=== PATIENT | male | born 1940 | race Caucasian/White ===

== ENCOUNTER → 2016-06-13 | Outpatient (CLI) | payer MEDICARE ==
[~2016-06-13] MED LIST: ACET65TA; AMOX875T; BABY81CH; COLA100C2; CORE25TA PO; COUM10TA; COUM1TAB17 PO; COUM7.5T PO; COZA50TA PO; DARV100T; LASI20TA PO; PLAV75TA2; PLAV75TA38 PO
[2016-06-13 12:40] LABS: MEAN CORPUSCULAR HEMOGLOBIN 28.8 pg (27.0-33.0); MEAN CORPUSCULAR HGB CONC 31.9 g/dl (32.0-36.5); MEAN CORPUSCULAR VOLUME 90.4 fl (80.0-96.0); RED CELL DISTRIBUTION WIDTH 13.2 % (11.5-14.5); WHITE BLOOD COUNT 6.7 K/mm3 (4.0-10.0)
[2016-06-13 12:49] LABS: ALBUMIN 3.6 GM/DL (3.2-5.2); ALKALINE PHOSPHATASE 104 U/L (45-117); ALT/SGPT 24 U/L (12-78); ANION GAP 8 MEQ/L (8-16); AST/SGOT 23 U/L (15-37); BILIRUBIN,TOTAL 0.8 MG/DL (0.2-1.0); BLOOD UREA NITROGEN 23 MG/DL (7-18); CALCIUM LEVEL 8.8 MG/DL (8.8-10.2); CARBON DIOXIDE LEVEL 30 MEQ/L (21-32); CHLORIDE LEVEL 104 MEQ/L (98-107); CHOLESTEROL LEVEL 199 MG/DL (<200); CREATININE FOR GFR 1.21 MG/DL (0.70-1.30); GLOMERULAR FILTRATION RATE > 60.0 (>42); GLUCOSE, FASTING 127 MG/DL (83-110); POTASSIUM SERUM 5.2 MEQ/L (3.5-5.1); SODIUM LEVEL 142 MEQ/L (136-145); TOTAL PROTEIN 7.2 GM/DL (6.4-8.2); TRIGLYCERIDES LEVEL 106 MG/DL (<150)
== END ==
LOC: M WUC 10:06
PROVIDERS: ATTEND Internal Medicine
DX: K57.90 Diverticulosis of intestine, part unspecified, without perforation or abscess without bleeding (principal); I10 Essential (primary) hypertension; R73.01 Impaired fasting glucose; I25.10 Atherosclerotic heart disease of native coronary artery without angina pectoris; E55.9 Vitamin D deficiency, unspecified

== ENCOUNTER → 2016-12-24 | Outpatient (REF) | payer MEDICARE ==
[~2016-12-24] MED LIST changes: +PLAV1TAB2 PO; -PLAV75TA38 PO
== END ==
LOC: M SFHCPLAZ 10:46
PROVIDERS: ATTEND Internal Medicine
DX: R73.01 Impaired fasting glucose (principal); I25.10 Atherosclerotic heart disease of native coronary artery without angina pectoris
CPT/HCPCS: 36415; 80061; 83036; 90714; G0463

== ENCOUNTER → 2017-07-09 | Outpatient (CLI) | payer MEDICARE ==
[2017-07-09 16:51] LABS: INR 1.93; PROTHROMBIN TIME 22.7 SECONDS (12.4-14.5)
[2017-07-09 17:02] LABS: ALBUMIN 4.2 GM/DL (3.2-5.2); ALBUMIN/GLOBULIN RATIO 1.14 (1.00-1.93); ALKALINE PHOSPHATASE 119 U/L (45-117); ALT/SGPT 20 U/L (12-78); ANION GAP 4 MEQ/L (8-16); AST/SGOT 23 U/L (7-37); BILIRUBIN,TOTAL 1.1 MG/DL (0.2-1.0); BLOOD UREA NITROGEN 29 MG/DL (7-18); CALCIUM LEVEL 9.1 MG/DL (8.8-10.2); CARBON DIOXIDE LEVEL 29 MEQ/L (21-32); CHLORIDE LEVEL 109 MEQ/L (98-107); CHOLESTEROL LEVEL 204 MG/DL (<200); CHOLESTEROL RISK RATIO 4.434 (<5); CREATININE FOR GFR 1.26 MG/DL (0.70-1.30); GLOMERULAR FILTRATION RATE 59.1 (>42); GLUCOSE, FASTING 100 MG/DL (70-100); HDL CHOLESTEROL 46 MG/DL (>40); LDL CHOLESTEROL 138.8 MG/DL (<100); MAGNESIUM LEVEL 2.2 MG/DL (1.8-2.4); NON-HDL-C 158 MG/DL; SODIUM LEVEL 142 MEQ/L (136-145); TOTAL PROTEIN 7.9 GM/DL (6.4-8.2); TRIGLYCERIDES LEVEL 96 MG/DL (<150)
[2017-07-09 17:03] LABS: POTASSIUM SERUM 5.3 MEQ/L (3.5-5.1)
[2017-07-09 17:04] LABS: TOTAL 25(OH) VITAMIN D 46.3 NG/ML (30.0-100.0)
[2017-07-09 17:10] LABS: MALB URINE SIEMENS 71.4 MG/L
[2017-07-09 19:29] LABS: ESTIMATED AVERAGE GLUCOSE 143 MG/DL (60-110); HEMOGLOBIN A1c 6.6 %
== END ==
LOC: M WUC 11:59
DX: I10 Essential (primary) hypertension (principal); R73.01 Impaired fasting glucose; I25.10 Atherosclerotic heart disease of native coronary artery without angina pectoris; I48.2 Chronic atrial fibrillation; Z51.81 Encounter for therapeutic drug level monitoring; Z79.01 Long term (current) use of anticoagulants; E55.9 Vitamin D deficiency, unspecified
CPT/HCPCS: 83735

== ENCOUNTER → 2018-01-14 | Outpatient (REF) | payer MEDICARE ==
[2018-01-14 13:43] LABS: HEMATOCRIT 41.6 % (42.0-52.0); HEMOGLOBIN 13.3 g/dl (13.5-17.5); MEAN CORPUSCULAR HEMOGLOBIN 28.2 pg (27.0-33.0); MEAN CORPUSCULAR VOLUME 88.3 fl (80.0-96.0); PLATELET COUNT, AUTOMATED 132 10^3/uL (150-450); RED BLOOD COUNT 4.71 10^6/uL (4.30-6.10); WHITE BLOOD COUNT 5.5 10^3/uL (4.0-10.0)
[2018-01-14 14:04] LABS: ESTIMATED AVERAGE GLUCOSE 137 MG/DL (60-110); HEMOGLOBIN A1c 6.4 %
[2018-01-14 14:06] LABS: ALBUMIN 3.8 GM/DL (3.2-5.2); ALBUMIN/GLOBULIN RATIO 1.15 (1.00-1.93); ALKALINE PHOSPHATASE 107 U/L (45-117); ALT/SGPT 22 U/L (12-78); ANION GAP 5 MEQ/L (8-16); AST/SGOT 21 U/L (7-37); BLOOD UREA NITROGEN 27 MG/DL (7-18); CALCIUM LEVEL 8.4 MG/DL (8.8-10.2); CARBON DIOXIDE LEVEL 31 MEQ/L (21-32); CHLORIDE LEVEL 107 MEQ/L (98-107); CHOLESTEROL LEVEL 192 MG/DL (<200); CREATININE FOR GFR 1.31 MG/DL (0.70-1.30); GLOMERULAR FILTRATION RATE 56.5 (>42); GLUCOSE, FASTING 115 MG/DL (70-100); HDL CHOLESTEROL 48 MG/DL (>40); LDL CHOLESTEROL 126 MG/DL (<100); MAGNESIUM LEVEL 2.1 MG/DL (1.8-2.4); NON-HDL-C 144 MG/DL; POTASSIUM SERUM 4.8 MEQ/L (3.5-5.1); SODIUM LEVEL 143 MEQ/L (136-145); TOTAL PROTEIN 7.1 GM/DL (6.4-8.2); TRIGLYCERIDES LEVEL 88 MG/DL (<150)
[2018-01-14 14:11] LABS: MALB URINE SIEMENS 63.2 MG/L
== END ==
LOC: M SFHCPLAZ 10:50
DX: R73.01 Impaired fasting glucose (principal); I25.10 Atherosclerotic heart disease of native coronary artery without angina pectoris; E55.9 Vitamin D deficiency, unspecified; R19.5 Other fecal abnormalities; I10 Essential (primary) hypertension; Z51.81 Encounter for therapeutic drug level monitoring; Z79.01 Long term (current) use of anticoagulants; Z68.30 Body mass index [BMI] 30.0-30.9, adult
CPT/HCPCS: 83735

== ENCOUNTER 2018-02-25 11:56 | Day surgery (SDC) | payer MEDICARE ==
[2018-02-25] MEDS: NS 1,000 ML IV (07:00)
[~2018-02-25 11:56] MED LIST changes: -ACET65TA; -AMOX875T; -BABY81CH; -COLA100C2; -CORE25TA PO; -COUM10TA; -COUM1TAB17 PO; -COUM7.5T PO; -COZA50TA PO; -DARV100T; -LASI20TA PO; -PLAV1TAB2 PO; -PLAV75TA2; +PROPOFOL 200 MG/20 ML VIAL As Ordered
== END 2018-02-25 13:40 | disposition home or self-care (01) ==
LOC: M OPP 13:40
DX: Z12.11 Encounter for screening for malignant neoplasm of colon (principal); K64.0 First degree hemorrhoids; K57.30 Diverticulosis of large intestine without perforation or abscess without bleeding; I48.91 Unspecified atrial fibrillation; I25.9 Chronic ischemic heart disease, unspecified; G47.30 Sleep apnea, unspecified; Z79.01 Long term (current) use of anticoagulants; Z79.899 Other long term (current) drug therapy; Z95.810 Presence of automatic (implantable) cardiac defibrillator
CPT/HCPCS: G0121

== ENCOUNTER → 2018-07-28 | Outpatient (CLI) | payer MEDICARE ==
[~2018-07-28] MED LIST changes: +ACET65TA; +AMOX875T; +BABY81CH; +COLA100C2; +CORE25TA PO; +COUM10TA; +COUM1TAB17 PO; +COUM7.5T PO; +COZA50TA PO; +DARV100T; +LASI20TA3 PO; +PLAV1TAB2 PO; +PLAV75TA2; -PROPOFOL 200 MG/20 ML VIAL As Ordered
[2018-07-28 12:59] LABS: HEMOGLOBIN 12.1 g/dl (13.5-17.5); MEAN CORPUSCULAR HEMOGLOBIN 28.9 pg (27.0-33.0); MEAN CORPUSCULAR HGB CONC 31.8 g/dl (32.0-36.5); MEAN CORPUSCULAR VOLUME 90.7 fl (80.0-96.0); PLATELET COUNT, AUTOMATED 156 10^3/uL (150-450); RED BLOOD COUNT 4.19 10^6/uL (4.30-6.10); WHITE BLOOD COUNT 5.7 10^3/uL (4.0-10.0)
[2018-07-28 13:31] LABS: ALBUMIN 3.4 GM/DL (3.2-5.2); BILIRUBIN,TOTAL 1.5 MG/DL (0.2-1.0); CALCIUM LEVEL 8.8 MG/DL (8.8-10.2); CHOLESTEROL RISK RATIO 4.219 (<5); CREATININE FOR GFR 1.25 MG/DL (0.70-1.30); GLOMERULAR FILTRATION RATE 59.5 (>42); POTASSIUM SERUM 4.6 MEQ/L (3.5-5.1); TOTAL PROTEIN 7.1 GM/DL (6.4-8.2)
[2018-07-28 14:19] LABS: HEMOGLOBIN A1c 6.5 %
[2018-07-29 10:51] LABS: URIC ACID 4.2 MG/DL (3.5-7.2)
== END ==
LOC: M WUC 08:53
PROVIDERS: ATTEND Internal Medicine
DX: R19.5 Other fecal abnormalities (principal); I10 Essential (primary) hypertension; R73.01 Impaired fasting glucose; I25.10 Atherosclerotic heart disease of native coronary artery without angina pectoris; E55.9 Vitamin D deficiency, unspecified

== ENCOUNTER → 2019-02-05 | Outpatient (REF) | payer MEDICARE ==
[2019-02-05 12:45] LABS: HEMATOCRIT 43.2 % (42.0-52.0); HEMOGLOBIN 13.5 g/dl (13.5-17.5); MEAN CORPUSCULAR HEMOGLOBIN 28.1 pg (27.0-33.0); MEAN CORPUSCULAR HGB CONC 31.3 g/dl (32.0-36.5); MEAN CORPUSCULAR VOLUME 89.8 fl (80.0-96.0); PLATELET COUNT, AUTOMATED 132 10^3/uL (150-450); RED BLOOD COUNT 4.81 10^6/uL (4.30-6.10); WHITE BLOOD COUNT 5.5 10^3/uL (4.0-10.0)
[2019-02-05 12:49] LABS: ALBUMIN 3.8 GM/DL (3.2-5.2); ALT/SGPT 20 U/L (12-78); BLOOD UREA NITROGEN 30 MG/DL (7-18); CALCIUM LEVEL 9.1 MG/DL (8.8-10.2); CARBON DIOXIDE LEVEL 27 MEQ/L (21-32); CHLORIDE LEVEL 109 MEQ/L (98-107); CHOLESTEROL LEVEL 190 MG/DL (<200); CHOLESTEROL RISK RATIO 3.958 (<5); CREATININE FOR GFR 1.23 MG/DL (0.70-1.30); GLOMERULAR FILTRATION RATE > 60.0 (>42); GLUCOSE, FASTING 114 MG/DL (70-100); HDL CHOLESTEROL 48 MG/DL (>40); LDL CHOLESTEROL 125 MG/DL (<100); MAGNESIUM LEVEL 1.9 MG/DL (1.8-2.4); NON-HDL-C 142 MG/DL; SODIUM LEVEL 140 MEQ/L (136-145); TOTAL PROTEIN 7.3 GM/DL (6.4-8.2); TRIGLYCERIDES LEVEL 84 MG/DL (<150); URIC ACID 8.9 MG/DL (3.5-7.2)
[2019-02-05 13:19] LABS: MALB URINE SIEMENS 91.8 MG/L
[2019-02-05 14:12] LABS: HEMOGLOBIN A1c 6.6 %
== END ==
LOC: M SFHCPLAZ 09:03
PROVIDERS: ATTEND Internal Medicine
DX: I10 Essential (primary) hypertension (principal); R73.01 Impaired fasting glucose; I25.10 Atherosclerotic heart disease of native coronary artery without angina pectoris; M79.672 Pain in left foot; Z79.01 Long term (current) use of anticoagulants
CPT/HCPCS: 36415; 80053; 80061; 82043; 83036; 83735; 84550; 85027; G0463

== ENCOUNTER → 2019-06-11 | Outpatient (CLI) | payer MEDICARE ==
--- NOTE | 2019-06-11 09:13 | REP ---
Renal Vascular Doppler Ultrasound: Right Kidney: Renal length new 0.0 cm. Extraparenchymal renal artery. Peak renal artery flow velocity the 223 cm/ sec Peak aortic velocity: 84 cm/sec Renal/aortic ratio: 2.7 Intraparenchymal renal arteries. Resistive index: upper pole 0.88 mid pole 0.88 lower pole 0.84 Acceleration time: upper pole 0.052 mid pole 0.060 lower pole 0.052 Left kidney: Renal length 11.6 cm. Extraparenchymal renal artery: Peak renal artery flow velocity: 192 cm/sec. Peak aortic velocity: 84 cm/sec Renal/aortic ratio: 2.3 Intraparenchymal renal arteries: Resistive index: Upper pole 0.89 mid pole 0.8 sac lower pole 0.87 Acceleration time: Upper pole 0.058 mid pole 0.050 lower pole 0.058 Impression: The peak renal artery velocities are elevated and the renal/aortic ratios are mildly elevated. This suggests narrowing of the renal arteries bilaterally. CTA or MRA might be considered for further evaluation. The resistive indices within the intra renal parenchymal arteries are elevated bilaterally. This is nonspecific but could be related to chronic renal parenchymal disease. Bilateral renal ultrasound: The right kidney measures 11.0 x 6.3 x 5.2 cm. The left kidney measures 11.6 x 5.7 x 5.6 cm. The kidneys are normal size. Renal cortical echogenicity is normal bilaterally. There are no renal calculi. There is no hydronephrosis. There are no solid or cystic renal masses. Impression: Essentially negative bilateral renal ultrasound. Electronically Signed by Gabe Zamora MD 06/11/2019 09:05 A
== END ==
LOC: M RAD 07:17
PROVIDERS: ATTEND Physician Assistant
DX: I10 Essential (primary) hypertension (principal)

== ENCOUNTER → 2019-08-13 | Outpatient (CLI) | payer MEDICARE ==
[2019-08-13 10:19] LABS: HEMATOCRIT 39.8 % (42.0-52.0); HEMOGLOBIN 12.4 g/dl (13.5-17.5); MEAN CORPUSCULAR HEMOGLOBIN 28.2 pg (27.0-33.0); MEAN CORPUSCULAR HGB CONC 31.2 g/dl (32.0-36.5); MEAN CORPUSCULAR VOLUME 90.5 fl (80.0-96.0); PLATELET COUNT, AUTOMATED 133 10^3/uL (150-450); WHITE BLOOD COUNT 6.7 10^3/uL (4.0-10.0)
[2019-08-13 10:38] LABS: HEMOGLOBIN A1c 7.1 %
[2019-08-13 10:46] LABS: ALBUMIN 3.7 GM/DL (3.2-5.2); CALCIUM LEVEL 8.4 MG/DL (8.8-10.2); CHOLESTEROL RISK RATIO 3.095 (<5); CREATININE FOR GFR 1.72 MG/DL (0.70-1.30); MAGNESIUM LEVEL 2.1 MG/DL (1.8-2.4); POTASSIUM SERUM 4.9 MEQ/L (3.5-5.1); THYROID STIMULATING HORMONE 1.88 uIU/ML (0.358-3.740); TOTAL PROTEIN 7.2 GM/DL (6.4-8.2); URIC ACID 8.7 MG/DL (3.5-7.2)
[2019-08-13 10:50] LABS: TOTAL 25(OH) VITAMIN D 73.2 NG/ML (30.0-100.0)
== END ==
LOC: M WUC 08:48
PROVIDERS: ATTEND Internal Medicine
DX: I10 Essential (primary) hypertension (principal); R73.01 Impaired fasting glucose; E55.9 Vitamin D deficiency, unspecified; Z79.01 Long term (current) use of anticoagulants; I48.20 Chronic atrial fibrillation, unspecified; I25.10 Atherosclerotic heart disease of native coronary artery without angina pectoris; E79.0 Hyperuricemia without signs of inflammatory arthritis and tophaceous disease; Z79.899 Other long term (current) drug therapy

== ENCOUNTER → 2019-11-24 | Outpatient (CLI) | payer MEDICARE ==
[~2019-11-24] MED LIST changes: -COUM7.5T PO; +COUM7.5T6 PO
--- NOTE | 2019-12-01 14:47 | REP ---
RENAL ULTRASOUND CLINICAL: Worsening renal insufficiency. TECHNIQUE: Real-time dunn scale ultrasound examination using curved array transducer. FINDINGS: The bilateral kidneys demonstrate increased central medullary fat and decreased cortical parenchyma consistent with chronic renal disease. No hydronephrosis, nephrolithiasis, cystic or mass lesion is appreciated. The right kidney measures 10.3 x 5.3 x 4.8 cm and demonstrates normal reniform shape. The left kidney measures 11.2 x 6.4 x 5.9 cm and demonstrates subtle areas of cortical scarring. The bladder is under-distended, but grossly normal in appearance. IMPRESSION: Evidence consistent with chronic medical renal disease and minimal cortical scarring along the left kidney. No hydronephrosis. MTDD
== END ==
LOC: M RAD 10:18
PROVIDERS: ATTEND Internal Medicine Cardiovascular Disease
DX: N18.3 Chronic kidney disease, stage 3 (moderate) (principal)

== ENCOUNTER → 2020-02-10 | Outpatient (CLI) | payer MEDICARE ==
[2020-02-10 13:16] LABS: HEMOGLOBIN A1c 6.4 %
[2020-02-10 13:40] LABS: CREATININE, URINE 57.7 MG/DL; MALB URINE SIEMENS 28.7 MG/L; MAU/CREAT RATIO 49.7 MCG/MG (0.0-30.0)
[2020-02-10 14:03] LABS: ALBUMIN 3.7 GM/DL (3.2-5.2); BILIRUBIN,TOTAL 0.9 MG/DL (0.2-1.0); CALCIUM LEVEL 9.1 MG/DL (8.8-10.2); CREATININE FOR GFR 1.64 MG/DL (0.70-1.30); GLOMERULAR FILTRATION RATE 43.4 (>42); MAGNESIUM LEVEL 2.2 MG/DL (1.8-2.4); POTASSIUM SERUM 5.2 MEQ/L (3.5-5.1); TOTAL PROTEIN 7.2 GM/DL (6.4-8.2); URIC ACID 8.4 MG/DL (3.5-7.2)
== END ==
LOC: M WUC 09:33
PROVIDERS: ATTEND Internal Medicine
DX: I10 Essential (primary) hypertension (principal); R73.01 Impaired fasting glucose

== ENCOUNTER → 2020-08-14 | Outpatient (CLI) | payer MEDICARE ==
[2020-08-14 12:27] LABS: BASO % 0.4 % (0.0-1.0); EOS # 0.2 10^3/uL (0.0-0.5); EOS % 3.9 % (0.0-3.0); HEMATOCRIT 37.6 % (42.0-52.0); HEMOGLOBIN 11.6 g/dl (13.5-17.5); LYMPH # 0.7 10^3/uL (1.5-5.0); MEAN CORPUSCULAR HEMOGLOBIN 28.4 pg (27.0-33.0); MEAN CORPUSCULAR HGB CONC 30.9 g/dl (32.0-36.5); MEAN CORPUSCULAR VOLUME 92.2 fl (80.0-96.0); MONO # 0.6 10^3/uL (0.0-0.8); NEUTROPHILS # 3.2 10^3/uL (1.5-8.5); NEUTROPHILS % 68.5 % (36.0-66.0); PLATELET COUNT, AUTOMATED 122 10^3/uL (150-450); RED BLOOD COUNT 4.08 10^6/uL (4.30-6.10); WHITE BLOOD COUNT 4.6 10^3/uL (4.0-10.0)
[2020-08-14 13:06] LABS: ALBUMIN 3.5 GM/DL (3.2-5.2); BILIRUBIN,TOTAL 0.6 MG/DL (0.2-1.0); CALCIUM LEVEL 8.4 MG/DL (8.8-10.2); CHOLESTEROL RISK RATIO 3.571 (<5); CREATININE FOR GFR 2.23 MG/DL (0.70-1.30); GLOMERULAR FILTRATION RATE 30.3 (>35); MAGNESIUM LEVEL 1.9 MG/DL (1.8-2.4); POTASSIUM SERUM 5.6 MEQ/L (3.5-5.1); PTH INTACT 155.1 PG/ML (18.5-88.0); TOTAL 25(OH) VITAMIN D 83.9 NG/ML (30.0-100.0); TOTAL PROTEIN 7.2 GM/DL (6.4-8.2)
[2020-08-14 13:42] LABS: HEMOGLOBIN A1c 6.4 %
== END ==
LOC: M WUC 10:43
PROVIDERS: ATTEND Internal Medicine
DX: I10 Essential (primary) hypertension (principal); E55.9 Vitamin D deficiency, unspecified; F39 Unspecified mood [affective] disorder; I25.10 Atherosclerotic heart disease of native coronary artery without angina pectoris; Z79.899 Other long term (current) drug therapy

== ENCOUNTER → 2020-09-04 | Outpatient (CLI) | payer MEDICARE ==
[2020-09-04 17:35] LABS: BASO % 0.4 % (0.0-1.0); EOS # 0.2 10^3/uL (0.0-0.5); HEMATOCRIT 37.8 % (42.0-52.0); HEMOGLOBIN 11.5 g/dl (13.5-17.5); LYMPH # 0.7 10^3/uL (1.5-5.0); LYMPH % 15.6 % (24.0-44.0); MEAN CORPUSCULAR HEMOGLOBIN 28.4 pg (27.0-33.0); MEAN CORPUSCULAR HGB CONC 30.4 g/dl (32.0-36.5); MEAN CORPUSCULAR VOLUME 93.3 fl (80.0-96.0); MONO # 0.5 10^3/uL (0.0-0.8); MONO % 11.7 % (2.0-8.0); NEUTROPHILS # 3.1 10^3/uL (1.5-8.5); NEUTROPHILS % 67.1 % (36.0-66.0); PLATELET COUNT, AUTOMATED 114 10^3/uL (150-450); RED BLOOD COUNT 4.05 10^6/uL (4.30-6.10); WHITE BLOOD COUNT 4.6 10^3/uL (4.0-10.0)
[2020-09-04 18:15] LABS: CALCIUM LEVEL 8.9 MG/DL (8.8-10.2); CREATININE FOR GFR 2.07 MG/DL (0.70-1.30); GLOMERULAR FILTRATION RATE 33.1 (>35); POTASSIUM SERUM 4.9 MEQ/L (3.5-5.1); PTH INTACT 98.4 PG/ML (18.5-88.0)
== END ==
LOC: M WUC 10:47
PROVIDERS: ATTEND Internal Medicine
DX: N18.32 Chronic kidney disease, stage 3b (principal); I12.9 Hypertensive chronic kidney disease with stage 1 through stage 4 chronic kidney disease, or unspecified chronic kidney disease; D63.1 Anemia in chronic kidney disease

== ENCOUNTER → 2020-12-20 | Outpatient (CLI) | payer MEDICARE ==
[2020-12-20 16:38] LABS: BASO % 0.4 % (0.0-1.0); EOS # 0.3 10^3/uL (0.0-0.5); EOS % 5.7 % (0.0-3.0); HEMATOCRIT 37.9 % (42.0-52.0); HEMOGLOBIN 11.7 g/dl (13.5-17.5); LYMPH # 0.8 10^3/uL (1.5-5.0); LYMPH % 16.6 % (24.0-44.0); MEAN CORPUSCULAR HEMOGLOBIN 29.2 pg (27.0-33.0); MEAN CORPUSCULAR HGB CONC 30.9 g/dl (32.0-36.5); MEAN CORPUSCULAR VOLUME 94.5 fl (80.0-96.0); MONO # 0.5 10^3/uL (0.0-0.8); MONO % 10.5 % (2.0-8.0); NEUTROPHILS # 3.4 10^3/uL (1.5-8.5); NEUTROPHILS % 66.6 % (36.0-66.0); PLATELET COUNT, AUTOMATED 118 10^3/uL (150-450); RED BLOOD COUNT 4.01 10^6/uL (4.30-6.10); WHITE BLOOD COUNT 5.1 10^3/uL (4.0-10.0)
[2020-12-20 17:11] LABS: ALBUMIN 3.4 GM/DL (3.2-5.2); BILIRUBIN,TOTAL 0.7 MG/DL (0.2-1.0); CALCIUM LEVEL 8.5 MG/DL (8.8-10.2); CHOLESTEROL RISK RATIO 3.52 (<5); CREATININE FOR GFR 2.25 MG/DL (0.70-1.30); MAGNESIUM LEVEL 2.1 MG/DL (1.8-2.4); POTASSIUM SERUM 5.6 MEQ/L (3.5-5.1); TOTAL PROTEIN 6.9 GM/DL (6.4-8.2)
[2020-12-20 17:14] LABS: PTH INTACT 137.4 PG/ML (18.5-88.0)
[2020-12-20 17:15] LABS: MALB URINE SIEMENS 34.9 MG/L; MAU/CREAT RATIO 41.5 MCG/MG (0.0-30.0)
== END ==
LOC: M WUC 11:06
PROVIDERS: ATTEND Internal Medicine
DX: I12.9 Hypertensive chronic kidney disease with stage 1 through stage 4 chronic kidney disease, or unspecified chronic kidney disease (principal); N18.32 Chronic kidney disease, stage 3b; E11.29 Type 2 diabetes mellitus with other diabetic kidney complication; D63.1 Anemia in chronic kidney disease; I25.10 Atherosclerotic heart disease of native coronary artery without angina pectoris; Z11.59 Encounter for screening for other viral diseases
CPT/HCPCS: 36415; 80053; 80061; 82043; 83036; 83735; 83970; 85025; G0472

== ENCOUNTER → 2021-02-12 | Outpatient (CLI) | payer MEDICARE ==
[2021-02-12 17:30] LABS: CREATININE FOR GFR 2.34 MG/DL (0.70-1.30); GLOMERULAR FILTRATION RATE 28.7 (>35); POTASSIUM SERUM 5.2 MEQ/L (3.5-5.1); THYROID STIMULATING HORMONE 1.23 uIU/ML (0.358-3.740)
== END ==
LOC: M WUC 11:40
PROVIDERS: ATTEND Internal Medicine Cardiovascular Disease
DX: I25.5 Ischemic cardiomyopathy (principal); I48.20 Chronic atrial fibrillation, unspecified; E03.9 Hypothyroidism, unspecified

== ENCOUNTER → 2022-02-11 | Outpatient (CLI) | payer MEDICARE ==
[~2022-02-11] MED LIST changes: +CLOP75TA99 PO; -PLAV1TAB2 PO
== END ==
LOC: M PLAIMG 12:38
PROVIDERS: ATTEND Nurse Practitioner Adult Health
DX: R05.9 Cough, unspecified (principal); J84.9 Interstitial pulmonary disease, unspecified

== ENCOUNTER → 2022-02-14 | Outpatient (CLI) | payer MEDICARE ==
[2022-02-14 14:39] LABS: BASO % 0.4 % (0.0-1.0); EOS # 0.1 10^3/uL (0.0-0.5); EOS % 1.2 % (0.0-3.0); LYMPH # 0.9 10^3/uL (1.5-5.0); LYMPH % 10.4 % (24.0-44.0); MEAN CORPUSCULAR HEMOGLOBIN 27.6 pg (27.0-33.0); MEAN CORPUSCULAR HGB CONC 30.8 g/dl (32.0-36.5); MEAN CORPUSCULAR VOLUME 89.7 fl (80.0-96.0); MONO # 0.9 10^3/uL (0.0-0.8); MONO % 10.6 % (2.0-8.0); NEUTROPHILS # 6.4 10^3/uL (1.5-8.5); PLATELET COUNT, AUTOMATED 180 10^3/uL (150-450); RED BLOOD COUNT 4.35 10^6/uL (4.30-6.10); WHITE BLOOD COUNT 8.3 10^3/uL (4.0-10.0)
[2022-02-14 15:17] LABS: BILIRUBIN,TOTAL 0.8 MG/DL (0.3-1.2); C REACTIVE PROTEIN QUANTITATIV 7.6 MG/DL (<1.0); CALCIUM LEVEL 8.9 MG/DL (8.3-10.6); CREATININE FOR GFR 1.7 MG/DL (0.70-1.30); GLOMERULAR FILTRATION RATE 41.4 (>35); TOTAL PROTEIN 7.2 G/DL (5.7-8.2)
[2022-02-14 15:50] LABS: ERYTHROCYTE SEDIMENTATION RATE 54 mm/hr (0-20)
== END ==
LOC: M PLALAB 12:31
PROVIDERS: ATTEND Physician Assistant
DX: R06.02 Shortness of breath (principal); R53.83 Other fatigue; R05.1 Acute cough

== ENCOUNTER → 2022-02-15 | Outpatient (CLI) | payer MEDICARE ==
[~2022-02-15] MED LIST changes: +ISOVUE-370 76% 100ML VIAL As Ordered ONE
== END ==
LOC: M RAD 11:14
PROVIDERS: ATTEND Physician Assistant
DX: R06.02 Shortness of breath (principal); R53.83 Other fatigue; R79.89 Other specified abnormal findings of blood chemistry
CPT/HCPCS: 71275; Q9967

== ENCOUNTER → 2022-02-27 | Outpatient (CLI) | payer MEDICARE ==
[~2022-02-27] MED LIST changes: -ISOVUE-370 76% 100ML VIAL As Ordered ONE
[2022-02-27 13:56] LABS: BASO % 0.4 % (0.0-1.0); EOS # 0.3 10^3/uL (0.0-0.5); EOS % 3.3 % (0.0-3.0); HEMATOCRIT 39.8 % (42.0-52.0); HEMOGLOBIN 12.3 g/dl (13.5-17.5); LYMPH # 1.3 10^3/uL (1.5-5.0); LYMPH % 16.9 % (24.0-44.0); MEAN CORPUSCULAR HEMOGLOBIN 27.9 pg (27.0-33.0); MEAN CORPUSCULAR HGB CONC 30.9 g/dl (32.0-36.5); MEAN CORPUSCULAR VOLUME 90.2 fl (80.0-96.0); MONO # 0.8 10^3/uL (0.0-0.8); MONO % 10.2 % (2.0-8.0); NEUTROPHILS # 5.2 10^3/uL (1.5-8.5); NEUTROPHILS % 68.8 % (36.0-66.0); PLATELET COUNT, AUTOMATED 174 10^3/uL (150-450); RED BLOOD COUNT 4.41 10^6/uL (4.30-6.10); WHITE BLOOD COUNT 7.5 10^3/uL (4.0-10.0)
[2022-02-27 14:07] LABS: HEMOGLOBIN A1c 6.1 % (4.0-6.0)
[2022-02-27 14:18] LABS: ERYTHROCYTE SEDIMENTATION RATE 45 mm/hr (0-20)
[2022-02-27 16:20] LABS: C REACTIVE PROTEIN QUANTITATIV 0.4 MG/DL (<1.0)
[2022-02-27 16:28] LABS: ALBUMIN 3.2 G/DL (3.2-5.2); BILIRUBIN,TOTAL 0.8 MG/DL (0.3-1.2); CALCIUM LEVEL 9.1 MG/DL (8.3-10.6); CREATININE FOR GFR 1.63 MG/DL (0.70-1.30); GLOMERULAR FILTRATION RATE 43.4 (>35); POTASSIUM SERUM 5.6 MMOL/L (3.5-5.1); TOTAL PROTEIN 7.3 G/DL (5.7-8.2)
== END ==
LOC: M PLALAB 11:28
PROVIDERS: ATTEND Physician Assistant
DX: R63.4 Abnormal weight loss (principal); R11.0 Nausea; R05.1 Acute cough; R89.9 Unspecified abnormal finding in specimens from other organs, systems and tissues; R19.7 Diarrhea, unspecified; Z79.899 Other long term (current) drug therapy

== ENCOUNTER → 2022-03-08 | Outpatient (CLI) | payer MEDICARE ==
[~2022-03-08] MED LIST changes: +GASTROGRAFIN SOLUTION 30ML As Ordered ONE
[2022-03-08 08:39] LABS: BASO % 0.4 % (0.0-1.0); EOS # 0.3 10^3/uL (0.0-0.5); EOS % 4.3 % (0.0-3.0); HEMOGLOBIN 11.8 g/dl (13.5-17.5); LYMPH # 1.2 10^3/uL (1.5-5.0); LYMPH % 16.2 % (24.0-44.0); MEAN CORPUSCULAR HEMOGLOBIN 27.7 pg (27.0-33.0); MEAN CORPUSCULAR HGB CONC 31.1 g/dl (32.0-36.5); MEAN CORPUSCULAR VOLUME 89.2 fl (80.0-96.0); MONO # 0.9 10^3/uL (0.0-0.8); NEUTROPHILS # 4.9 10^3/uL (1.5-8.5); PLATELET COUNT, AUTOMATED 137 10^3/uL (150-450); RED BLOOD COUNT 4.26 10^6/uL (4.30-6.10); WHITE BLOOD COUNT 7.3 10^3/uL (4.0-10.0)
[2022-03-08 09:08] LABS: ALBUMIN 3.3 G/DL (3.2-5.2); CALCIUM LEVEL 8.7 MG/DL (8.3-10.6); CREATININE FOR GFR 1.88 MG/DL (0.70-1.30); GLOMERULAR FILTRATION RATE 36.8 (>35); PHOSPHORUS LEVEL 3.9 MG/DL (2.4-5.1)
== END ==
LOC: M RAD 08:06
PROVIDERS: ATTEND Physician Assistant
DX: R11.0 Nausea (principal); R19.7 Diarrhea, unspecified; R63.4 Abnormal weight loss
CPT/HCPCS: 36415; 74176; 80069; 85025; Q9963

== ENCOUNTER → 2022-04-17 | Outpatient (REF) | payer MEDICARE ==
[~2022-04-17] MED LIST changes: -GASTROGRAFIN SOLUTION 30ML As Ordered ONE
[2022-04-17 13:57] LABS: RHEUMATOID FACTOR QUANT < 3.5 IU/ML (<14)
== END ==
LOC: M LAB REF 12:37
PROVIDERS: ATTEND Nurse Practitioner Adult Health
DX: R91.8 Other nonspecific abnormal finding of lung field (principal)

== ENCOUNTER → 2022-09-13 | Outpatient (CLI) | payer MEDICARE ==
[~2022-09-13] MED LIST changes: -COZA50TA PO; +LOSA-528 PO
== END ==
LOC: M PLAIMG 10:47
PROVIDERS: ATTEND Nurse Practitioner Adult Health
DX: R91.8 Other nonspecific abnormal finding of lung field (principal)

== ENCOUNTER → 2022-11-11 | Outpatient (CLI) | payer MEDICARE ==
[2022-11-11 13:59] LABS: FERRITIN 212.1 NG/ML (10.5-307.3); HEMATOCRIT 37.9 % (42.0-52.0); HEMOGLOBIN 12.2 g/dl (13.5-17.5); MEAN CORPUSCULAR HEMOGLOBIN 27.7 pg (27.0-33.0); MEAN CORPUSCULAR HGB CONC 32.2 g/dl (32.0-36.5); MEAN CORPUSCULAR VOLUME 86.1 fl (80.0-96.0); PLATELET COUNT, AUTOMATED 170 10^3/uL (150-450); THYROID STIMULATING HORMONE 1.893 uIU/ML (0.55-4.78); TOTAL 25(OH) VITAMIN D 70.4 NG/ML (20.0-100.0); WHITE BLOOD COUNT 6.7 10^3/uL (4.0-10.0)
[2022-11-11 14:02] LABS: ALBUMIN 3.5 G/DL (3.2-5.2); BILIRUBIN,TOTAL 0.7 MG/DL (0.3-1.2); C REACTIVE PROTEIN QUANTITATIV 1.2 MG/DL (<1.0); CALCIUM LEVEL 9.2 MG/DL (8.3-10.6); CHOLESTEROL RISK RATIO 3.93 (<5); CREATININE FOR GFR 1.78 MG/DL (0.70-1.30); FREE T4 0.95 NG/DL (0.89-1.76); GLOMERULAR FILTRATION RATE 39.1 (>35); HDL CHOLESTEROL 37.1 MG/DL (>40); LDL CHOLESTEROL 93.9 MG/DL (<100); NON-HDL-C 108.9 MG/DL; PERCENT SATURATION 13.1 % (19.7-50.0); POTASSIUM SERUM 4.9 MMOL/L (3.5-5.1); TOTAL PROTEIN 7.4 G/DL (5.7-8.2)
[2022-11-11 14:11] LABS: HEMOGLOBIN A1c 6.8 % (4.0-6.0)
[2022-11-11 14:18] LABS: CREATININE, URINE 54.4 MG/DL; MAU/CREAT RATIO 20.2 MCG/MG (0.0-30.0)
== END ==
LOC: M PLALAB 09:41
PROVIDERS: ATTEND Internal Medicine Hematology
DX: I25.10 Atherosclerotic heart disease of native coronary artery without angina pectoris (principal); D50.0 Iron deficiency anemia secondary to blood loss (chronic)

== ENCOUNTER → 2023-07-10 | Outpatient (CLI) | payer MEDICARE ==
[2023-07-10 12:57] LABS: BASO % 0.3 % (0.0-1.0); EOS # 0.1 10^3/uL (0.0-0.5); EOS % 1.8 % (0.0-3.0); HEMATOCRIT 38.1 % (42.0-52.0); HEMOGLOBIN 12.1 g/dl (13.5-17.5); LYMPH % 14.9 % (24.0-44.0); MEAN CORPUSCULAR HEMOGLOBIN 28.9 pg (27.0-33.0); MEAN CORPUSCULAR HGB CONC 31.8 g/dl (32.0-36.5); MEAN CORPUSCULAR VOLUME 90.9 fl (80.0-96.0); MONO # 0.7 10^3/uL (0.0-0.8); MONO % 10.6 % (2.0-8.0); NEUTROPHILS # 4.8 10^3/uL (1.5-8.5); NEUTROPHILS % 72.1 % (36.0-66.0); PLATELET COUNT, AUTOMATED 149 10^3/uL (150-450); RED BLOOD COUNT 4.19 10^6/uL (4.30-6.10); WHITE BLOOD COUNT 6.7 10^3/uL (4.0-10.0)
[2023-07-10 13:17] LABS: CREATININE, URINE 94.3 MG/DL
[2023-07-10 13:18] LABS: MAU/CREAT RATIO 41.3 MCG/MG (0.0-30.0)
[2023-07-10 13:20] LABS: HEMOGLOBIN A1c 6.2 % (4.0-6.0)
[2023-07-10 13:28] LABS: C REACTIVE PROTEIN QUANTITATIV 2.7 MG/DL (<1.0)
[2023-07-10 13:30] LABS: ALBUMIN 3.3 G/DL (3.2-5.2); BILIRUBIN,TOTAL 1.8 MG/DL (0.3-1.2); CALCIUM LEVEL 8.8 MG/DL (8.3-10.6); CHOLESTEROL RISK RATIO 2.4 (<5); CREATININE FOR GFR 1.39 MG/DL (0.70-1.30); HDL CHOLESTEROL 65.2 MG/DL (>40); LDL CHOLESTEROL 75.6 MG/DL (<100); NON-HDL-C 91.8 MG/DL; POTASSIUM SERUM 4.7 MMOL/L (3.5-5.1); TOTAL PROTEIN 7.1 G/DL (5.7-8.2)
[2023-07-10 13:32] LABS: TOTAL 25(OH) VITAMIN D 64.4 NG/ML (20.0-100.0)
[2023-07-10 13:33] LABS: THYROID STIMULATING HORMONE 1.221 uIU/ML (0.55-4.78)
[2023-07-10 13:34] LABS: FREE T4 0.9 NG/DL (0.89-1.76)
== END ==
LOC: M PLALAB 11:41
PROVIDERS: ATTEND Internal Medicine Hematology
DX: E11.29 Type 2 diabetes mellitus with other diabetic kidney complication (principal); N18.32 Chronic kidney disease, stage 3b

== ENCOUNTER → 2023-07-15 | Outpatient (CLI) | payer MEDICARE ==
[~2023-07-15] MED LIST changes: +ISOVUE-370 76% 100ML VIAL As Ordered ONE
== END ==
LOC: M RAD 08:56
PROVIDERS: ATTEND Internal Medicine Hematology
DX: R91.1 Solitary pulmonary nodule (principal)
CPT/HCPCS: 71260; Q9967

== ENCOUNTER → 2023-08-01 | Outpatient (CLI) | payer MEDICARE ==
[~2023-08-01] MED LIST changes: -ISOVUE-370 76% 100ML VIAL As Ordered ONE
== END ==
LOC: M RAD 13:36
PROVIDERS: ATTEND Physician Assistant
DX: I65.23 Occlusion and stenosis of bilateral carotid arteries (principal)

== ENCOUNTER 2023-08-06 11:07 | Outpatient (CLI) | payer MEDICARE ==
[~2023-08-06 11:07] MED LIST changes: +ALBUTEROL SULFATE 2.5MG/0.5ML INH NEB SOLN INH PRN; +EPINEPHrine INJ 1 MG/ML 1ML AMP IM PRN; +NS 1,000 ML IV SCH; +diphenhydrAMINE 50MG/ML VIAL IV PRN; +methylPREDNISolone 125MG 2ML VIAL IV PRN
[2023-08-06 11:15] VITALS: BP 147/70; O2SAT 100
[2023-08-06] MEDS: IRON SUCROSE 200 MG in NS 100 ML IV ONE (11:23)
[2023-08-06 12:05] VITALS: BP 158/88; O2SAT 100
== END 2023-08-06 12:15 | disposition home or self-care (01) ==
LOC: M INFU 11:07
PROVIDERS: ATTEND Internal Medicine Hematology
DX: N18.9 Chronic kidney disease, unspecified (principal); D63.1 Anemia in chronic kidney disease
CPT/HCPCS: 96365; J1756

== ENCOUNTER 2023-08-13 10:19 | Outpatient (CLI) | payer MEDICARE ==
[~2023-08-13 10:19] MED LIST changes: -NS 1,000 ML IV SCH
[2023-08-13 11:30] VITALS: BP 162/73; O2SAT 100
[2023-08-13] MEDS ORDERED: NS 1,000 ML IV SCH (11:30)
[2023-08-13] MEDS: IRON SUCROSE 200 MG in NS 100 ML OVER 1 HR IV ONE (11:41)
[2023-08-13 12:50] VITALS: BP 162/72; O2SAT 100
== END 2023-08-13 12:50 | disposition home or self-care (01) ==
LOC: M INFU 10:19
PROVIDERS: ATTEND Internal Medicine Hematology
DX: N18.9 Chronic kidney disease, unspecified (principal); D63.1 Anemia in chronic kidney disease; Z88.1 Allergy status to other antibiotic agents
CPT/HCPCS: 96365; J1756

== ENCOUNTER → 2023-11-05 | Outpatient (CLI) | payer MEDICARE ==
[~2023-11-05] MED LIST changes: -ALBUTEROL SULFATE 2.5MG/0.5ML INH NEB SOLN INH PRN; -EPINEPHrine INJ 1 MG/ML 1ML AMP IM PRN; -diphenhydrAMINE 50MG/ML VIAL IV PRN; -methylPREDNISolone 125MG 2ML VIAL IV PRN
== END ==
LOC: M SLEEP 20:00
PROVIDERS: ATTEND Nurse Practitioner Adult Health
DX: G47.33 Obstructive sleep apnea (adult) (pediatric) (principal); G47.61 Periodic limb movement disorder

== ENCOUNTER → 2024-01-27 | Outpatient (CLI) | payer MEDICARE ==
[2024-01-27 11:23] LABS: BASO % 0.3 % (0.0-1.0); EOS # 0.3 10^3/uL (0.0-0.5); EOS % 4.9 % (0.0-3.0); HEMATOCRIT 35.7 % (42.0-52.0); HEMOGLOBIN 11.3 g/dl (13.5-17.5); MEAN CORPUSCULAR HEMOGLOBIN 28.5 pg (27.0-33.0); MEAN CORPUSCULAR HGB CONC 31.7 g/dl (32.0-36.5); MEAN CORPUSCULAR VOLUME 89.9 fl (80.0-96.0); MONO # 0.6 10^3/uL (0.0-0.8); NEUTROPHILS # 4.4 10^3/uL (1.5-8.5); NEUTROPHILS % 68.5 % (36.0-66.0); PLATELET COUNT, AUTOMATED 162 10^3/uL (150-450); RED BLOOD COUNT 3.97 10^6/uL (4.30-6.10); WHITE BLOOD COUNT 6.4 10^3/uL (4.0-10.0)
[2024-01-27 11:44] LABS: CREATININE, URINE 118.2 MG/DL; MAU/CREAT RATIO 78.6 MCG/MG (0.0-30.0)
[2024-01-27 11:47] LABS: C REACTIVE PROTEIN QUANTITATIV 1.2 MG/DL (<1.0)
[2024-01-27 11:48] LABS: ALBUMIN 3.3 G/DL (3.2-5.2); BILIRUBIN,TOTAL 1.1 MG/DL (0.3-1.2); CALCIUM LEVEL 9.3 MG/DL (8.3-10.6); CHOLESTEROL RISK RATIO 4.89 (<5); CREATININE FOR GFR 1.78 MG/DL (0.70-1.30); FREE T4 0.87 NG/DL (0.89-1.76); GLOMERULAR FILTRATION RATE 39.1 (>35); HDL CHOLESTEROL 34.1 MG/DL (>40); LDL CHOLESTEROL 114.9 MG/DL (<100); NON-HDL-C 132.9 MG/DL; POTASSIUM SERUM 4.7 MMOL/L (3.5-5.1); THYROID STIMULATING HORMONE 2.397 uIU/ML (0.55-4.78); TOTAL PROTEIN 7.5 G/DL (5.7-8.2)
[2024-01-27 11:50] LABS: TOTAL 25(OH) VITAMIN D 52.7 NG/ML (20.0-100.0)
[2024-01-27 12:18] LABS: HEMOGLOBIN A1c 6.2 % (4.0-6.0)
== END ==
LOC: M PLALAB 08:37
PROVIDERS: ATTEND Internal Medicine Hematology
DX: I25.10 Atherosclerotic heart disease of native coronary artery without angina pectoris (principal); D50.9 Iron deficiency anemia, unspecified; E07.9 Disorder of thyroid, unspecified

== ENCOUNTER 2024-04-09 11:58 | Outpatient (CLI) | payer MEDICARE ==
[~2024-04-09] VITALS: Ht 188 cm; Wt 87.3 kg
[~2024-04-09 11:58] MED LIST changes: +ALBUTEROL SULFATE 2.5MG/0.5ML INH NEB SOLN INH PRN; +EPINEPHrine INJ 1 MG/ML 1ML AMP IM PRN; +diphenhydrAMINE 50MG/ML VIAL IV PRN; +methylPREDNISolone 125MG 2ML VIAL IV PRN
[2024-04-09 12:15] VITALS: BP 102/55; O2SAT 99
[2024-04-09] MEDS: IRON SUCROSE 300 MG in NS 250 ML OVER 90 MIN. IV ONE (12:57)
[2024-04-09 14:35] VITALS: BP 139/72; O2SAT 100
== END 2024-04-09 14:50 ==
LOC: M INFU 11:58
PROVIDERS: ATTEND Internal Medicine Hematology
DX: D50.8 Other iron deficiency anemias (principal); Z88.1 Allergy status to other antibiotic agents
CPT/HCPCS: 96365; 96366; J1756

== ENCOUNTER 2024-04-30 12:30 | Outpatient (CLI) | payer MEDICARE ==
[~2024-04-30] VITALS: Ht 190.5 cm; Wt 86.4 kg
[2024-04-30 12:30] VITALS: BP 110/58; O2SAT 99
[2024-04-30] MEDS: IRON SUCROSE 300 MG in NS 250 ML IV ONE (12:34)
[2024-04-30 14:10] VITALS: BP 161/74; O2SAT 99
== END 2024-04-30 14:30 ==
LOC: M INFU 12:30
PROVIDERS: ATTEND Internal Medicine Hematology
DX: D50.8 Other iron deficiency anemias (principal); Z88.8 Allergy status to other drugs, medicaments and biological substances
CPT/HCPCS: 96365; 96366; J1756

== ENCOUNTER → 2024-05-06 | Outpatient (REF) | payer MEDICARE ==
[~2024-05-06] MED LIST changes: -ALBUTEROL SULFATE 2.5MG/0.5ML INH NEB SOLN INH PRN; -EPINEPHrine INJ 1 MG/ML 1ML AMP IM PRN; -diphenhydrAMINE 50MG/ML VIAL IV PRN; -methylPREDNISolone 125MG 2ML VIAL IV PRN
[2024-05-06 17:37] LABS: APPEARANCE, URINE CLOUDY (CLEAR); BACTERIA, URINE AUTO 1+ (NEGATIVE); BILIRUBIN, URINE AUTO NEGATIVE (NEGATIVE); BLOOD, URINE BLOOD 1+ (NEGATIVE); COLOR, URINE AMBER (YELLOW); GLUCOSE, URINE (UA) AUTO NEGATIVE (NEGATIVE); KETONE, URINE AUTO NEGATIVE (NEGATIVE); LEUKOCYTE ESTERASE, URINE AUTO 3+ (NEGATIVE); MUCUS, URINE SMALL (NEGATIVE); NITRITE, URINE AUTO NEGATIVE (NEGATIVE); PROTEIN, URINE AUTO 2+ mg/dL (NEGATIVE); RBC, URINE AUTO 7 /HPF (0-3); SPECIFIC GRAVITY URINE AUTO 1.014 (1.002-1.035); SQUAMOUS EPITHELIAL CELL UR AU 1 /HPF (0-6); WBC, URINE AUTO TNTC /HPF (0-3)
== END ==
LOC: M SMT 16:52
PROVIDERS: ATTEND Urology
DX: R35.0 Frequency of micturition (principal); R39.15 Urgency of urination

== ENCOUNTER → 2024-05-20 | Outpatient (CLI) | payer MEDICARE ==
[2024-05-20 15:41] LABS: BASO % 0.4 % (0.0-1.0); EOS # 0.2 10^3/uL (0.0-0.5); EOS % 3.2 % (0.0-3.0); HEMATOCRIT 34.3 % (42.0-52.0); HEMOGLOBIN 10.7 g/dl (13.5-17.5); LYMPH # 1.2 10^3/uL (1.5-5.0); LYMPH % 16.6 % (24.0-44.0); MEAN CORPUSCULAR HEMOGLOBIN 27.9 pg (27.0-33.0); MEAN CORPUSCULAR HGB CONC 31.2 g/dl (32.0-36.5); MEAN CORPUSCULAR VOLUME 89.3 fl (80.0-96.0); MONO # 0.7 10^3/uL (0.0-0.8); MONO % 8.9 % (2.0-8.0); NEUTROPHILS # 5.2 10^3/uL (1.5-8.5); NEUTROPHILS % 70.5 % (36.0-66.0); PLATELET COUNT, AUTOMATED 205 10^3/uL (150-450); RED BLOOD COUNT 3.84 10^6/uL (4.30-6.10); WHITE BLOOD COUNT 7.4 10^3/uL (4.0-10.0)
[2024-05-20 16:05] LABS: PERCENT SATURATION 19.3 % (19.7-50.0)
[2024-05-22 03:17] LABS: IgG P18 AB NON-REACTIVE; IgG P23 AB NON-REACTIVE; IgG P28 AB NON-REACTIVE; IgG P30 AB NON-REACTIVE; IgG P39 AB NON-REACTIVE; IgG P41 AB REACTIVE; IgG P45 AB NON-REACTIVE; IgG P58 AB NON-REACTIVE; IgG P66 AB NON-REACTIVE; IgG P93 AB NON-REACTIVE; IgM P23 AB NON-REACTIVE; IgM P39 AB NON-REACTIVE; IgM P41 AB NON-REACTIVE; LYME IgG WB INTERPRETATION NEGATIVE (NEGATIVE); LYME IgM WB INTERPRETATION NEGATIVE (NEGATIVE)
[2024-05-24 13:57] LABS: SOLUBLE TRANSFERRIN RECEPTOR 1.88 mg/L (0.76-1.76)
[2024-05-24 16:12] LABS: LYME TOTAL ANTIBODY CIA <= 0.90 Index (<=0.90)
== END ==
LOC: M PLALAB 12:10
PROVIDERS: ATTEND Internal Medicine Hematology
DX: E61.1 Iron deficiency (principal); D63.8 Anemia in other chronic diseases classified elsewhere

== ENCOUNTER 2024-05-26 08:45 | Outpatient (CLI) | payer MEDICARE ==
[~2024-05-26] VITALS: Ht 193 cm; Wt 88.6 kg
[~2024-05-26 08:45] MED LIST changes: +ALBUTEROL SULFATE 2.5MG/0.5ML INH NEB SOLN INH PRN; +EPINEPHrine INJ 1 MG/ML 1ML AMP IM PRN; +diphenhydrAMINE 50MG/ML VIAL IV PRN; +methylPREDNISolone 125MG 2ML VIAL IV PRN
[2024-05-26] MEDS ORDERED: IRON SUCROSE 300 MG in NS 250 ML OVER 90 MIN. IV ONE (09:00)
[2024-05-26 09:24] VITALS: BP 90/51; O2SAT 100
[2024-05-26] MEDS: IRON SUCROSE 300 MG in NS 250 ML OVER 90 MIN. IV ONE (09:34)
[2024-05-26 10:30] VITALS: BP 96/64; O2SAT 100
[2024-05-26 11:18] VITALS: BP 133/66; O2SAT 98
== END 2024-05-26 11:20 ==
LOC: M INFU 08:45
PROVIDERS: ATTEND Internal Medicine Hematology
DX: E61.1 Iron deficiency (principal); Z88.8 Allergy status to other drugs, medicaments and biological substances
CPT/HCPCS: 96365; 96366; J1756

== ENCOUNTER → 2024-05-31 | Outpatient (REF) | payer MEDICARE ==
[~2024-05-31] MED LIST changes: -ALBUTEROL SULFATE 2.5MG/0.5ML INH NEB SOLN INH PRN; -EPINEPHrine INJ 1 MG/ML 1ML AMP IM PRN; -diphenhydrAMINE 50MG/ML VIAL IV PRN; -methylPREDNISolone 125MG 2ML VIAL IV PRN
[2024-05-31 13:28] LABS: APPEARANCE, URINE CLOUDY (CLEAR); BACTERIA, URINE AUTO NEGATIVE (NEGATIVE); BILIRUBIN, URINE AUTO NEGATIVE (NEGATIVE); BLOOD, URINE BLOOD NEGATIVE (NEGATIVE); COLOR, URINE AMBER (YELLOW); GLUCOSE, URINE (UA) AUTO NEGATIVE (NEGATIVE); KETONE, URINE AUTO NEGATIVE (NEGATIVE); LEUKOCYTE ESTERASE, URINE AUTO 3+ (NEGATIVE); MUCUS, URINE SMALL (NEGATIVE); NITRITE, URINE AUTO NEGATIVE (NEGATIVE); PROTEIN, URINE AUTO 1+ mg/dL (NEGATIVE); RBC, URINE AUTO 4 /HPF (0-3); SPECIFIC GRAVITY URINE AUTO 1.017 (1.002-1.035); SQUAMOUS EPITHELIAL CELL UR AU 0 /HPF (0-6); TRANSITIONAL EPITHELIAL AUTO 1 /HPF; UROBILINOGEN, URINE AUTO 0.2 mg/dL (0.0-2.0); WBC, URINE AUTO TNTC /HPF (0-3)
== END ==
LOC: M SFHCPLAZ 12:48
PROVIDERS: ATTEND Student in an Organized Health Care Education/Training Program
DX: R35.0 Frequency of micturition (principal)

== ENCOUNTER 2024-06-09 09:10 | Outpatient (CLI) | payer MEDICARE ==
[~2024-06-09] VITALS: Ht 190.5 cm; Wt 88.6 kg
[~2024-06-09 09:10] MED LIST changes: +ALBUTEROL SULFATE 2.5MG/0.5ML INH NEB SOLN INH PRN; +EPINEPHrine INJ 1 MG/ML 1ML AMP IM PRN; +diphenhydrAMINE 50MG/ML VIAL IV PRN; +methylPREDNISolone 125MG 2ML VIAL IV PRN
[2024-06-09 09:15] VITALS: BP 120/60; O2SAT 100
[2024-06-09] MEDS: IRON SUCROSE 300 MG in NS 250 ML IV ONE (09:27)
[2024-06-09 11:20] VITALS: BP 138/71; O2SAT 100
== END 2024-06-09 11:20 ==
LOC: M INFU 09:10
PROVIDERS: ATTEND Internal Medicine Hematology
DX: E61.1 Iron deficiency (principal); Z88.8 Allergy status to other drugs, medicaments and biological substances
CPT/HCPCS: 96365; 96366; J1756

== ENCOUNTER → 2024-07-27 | Outpatient (REF) | payer MEDICARE ==
[~2024-07-27] MED LIST changes: -ALBUTEROL SULFATE 2.5MG/0.5ML INH NEB SOLN INH PRN; -EPINEPHrine INJ 1 MG/ML 1ML AMP IM PRN; -diphenhydrAMINE 50MG/ML VIAL IV PRN; -methylPREDNISolone 125MG 2ML VIAL IV PRN
[2024-07-27 14:11] LABS: APPEARANCE, URINE CLOUDY (CLEAR); BACTERIA, URINE AUTO NEGATIVE (NEGATIVE); BILIRUBIN, URINE AUTO NEGATIVE (NEGATIVE); BLOOD, URINE BLOOD 1+ (NEGATIVE); COLOR, URINE YELLOW (YELLOW); GLUCOSE, URINE (UA) AUTO NEGATIVE (NEGATIVE); KETONE, URINE AUTO NEGATIVE (NEGATIVE); LEUKOCYTE ESTERASE, URINE AUTO 2+ (NEGATIVE); MUCUS, URINE SMALL (NEGATIVE); NITRITE, URINE AUTO NEGATIVE (NEGATIVE); PROTEIN, URINE AUTO NEGATIVE (NEGATIVE); RBC, URINE AUTO 4 /HPF (0-3); SPECIFIC GRAVITY URINE AUTO 1.013 (1.002-1.035); SQUAMOUS EPITHELIAL CELL UR AU 0 /HPF (0-6); UROBILINOGEN, URINE AUTO 0.2 mg/dL (0.0-2.0); WBC, URINE AUTO TNTC /HPF (0-3)
== END ==
LOC: M SMT 13:04
PROVIDERS: ATTEND Urology
DX: N39.0 Urinary tract infection, site not specified (principal)

== ENCOUNTER → 2024-12-14 | Outpatient (REF) | payer MEDICARE ==
[~2024-12-14] MED LIST changes: +CALC1CAP31; +FURO40TA2; +LEVO25TA5; +LEXA1TAB; +WARF-18 PO; +WARF-23
== END ==
LOC: M LAB REF 17:10
PROVIDERS: ATTEND Nurse Practitioner Family
DX: N39.0 Urinary tract infection, site not specified (principal)

== ENCOUNTER → 2025-01-28 | Outpatient (REF) | payer MEDICARE ==
[~2025-01-28] MED LIST changes: +LOKE5PAK PO; +OMEP-173 PO
[2025-01-28 10:16] LABS: PLATELET COUNT, AUTOMATED 175 10^3/uL (150-450)
[2025-01-28 10:41] LABS: CALCIUM LEVEL 8.6 MG/DL (8.3-10.6); CARBON DIOXIDE LEVEL 28.0 MMOL/L (20-31); CHLORIDE LEVEL 104.0 MMOL/L (98-107); CREATININE FOR GFR 1.27 MG/DL (0.70-1.30); GLOMERULAR FILTRATION RATE 55.7 (>35); IRON (FE) 62.0 UG/DL (65-175); PERCENT SATURATION 22.3 % (19.7-50.0); POTASSIUM SERUM 5.4 MMOL/L (3.5-5.1); SODIUM LEVEL 139.0 MMOL/L (136-145)
== END ==
LOC: M LAB REF 09:57
PROVIDERS: ATTEND Internal Medicine Cardiovascular Disease
DX: I50.22 Chronic systolic (congestive) heart failure (principal)

== ENCOUNTER → 2025-02-15 | Outpatient (CLI) | payer MEDICARE ==
[~2025-02-15] MED LIST changes: +ISOVUE-370 76% 100 ML VIAL ONE
== END ==
LOC: M PLAIMG 10:40
PROVIDERS: ATTEND Student in an Organized Health Care Education/Training Program
DX: D50.9 Iron deficiency anemia, unspecified (principal); R63.4 Abnormal weight loss
CPT/HCPCS: 71260; 74177; Q9967

== ENCOUNTER → 2025-03-08 | Outpatient (CLI) | payer MEDICARE ==
[~2025-03-08] MED LIST changes: -ISOVUE-370 76% 100 ML VIAL ONE
[2025-03-08 15:38] LABS: PLATELET COUNT, AUTOMATED 180 10^3/uL (150-450)
[2025-03-08 15:49] LABS: ESTIMATED AVERAGE GLUCOSE 131.0 MG/DL (60-110)
[2025-03-08 15:52] LABS: INR 2.04
[2025-03-08 16:08] LABS: ALT/SGPT 16.0 U/L (7.0-40); AST/SGOT 23.0 U/L (<34); CALCIUM LEVEL 8.6 MG/DL (8.3-10.6); CARBON DIOXIDE LEVEL 27.0 MMOL/L (20-31); CHLORIDE LEVEL 104.0 MMOL/L (98-107); CHOLESTEROL LEVEL 151.0 MG/DL (<200); CHOLESTEROL RISK RATIO 4.64 (<5); CREATININE FOR GFR 1.42 MG/DL (0.70-1.30); GLOMERULAR FILTRATION RATE 48.7 (>35); LDL CHOLESTEROL 104.3 MG/DL (<100); NON-HDL-C 118.5 MG/DL; POTASSIUM SERUM 4.9 MMOL/L (3.5-5.1); SODIUM LEVEL 141.0 MMOL/L (136-145); TRIGLYCERIDES LEVEL 71.0 MG/DL (<150)
[2025-03-08 16:09] LABS: FREE T4 1.06 NG/DL (0.89-1.76)
== END ==
LOC: M PLALAB 14:22
PROVIDERS: ATTEND Family Medicine
DX: Z00.00 Encounter for general adult medical examination without abnormal findings (principal); E03.9 Hypothyroidism, unspecified

== ENCOUNTER → 2025-03-08 | Outpatient (REF) | payer MEDICARE | LOC: M SFHCPLAZ 14:00 | PROVIDERS: ATTEND Family Medicine | DX: Z53.9 Procedure and treatment not carried out, unspecified reason (principal) ==